=== PATIENT | female | born 1960 | race African-American/Black ===

== ENCOUNTER 2016-09-08 11:19 | Inpatient (IN) | payer OTHER ==
[2016-09-08 16:57] VITALS: BMI 27.3
--- NOTE | 2016-09-08 16:57 | HP ---
Admission [facility] Chief Complaint: I WANT TO GO TO REHAB Allergies/Adverse Reactions: Allergies Allergy/AdvReac Type Severity Reaction Status Date / Time onion Allergy Severe Swelling Verified 09/08/16 17:36 red sauce Allergy Severe Swelling Uncoded 09/08/16 17:36 History of Present Illness: 56 YEARS OLD FEMALE WITH LONG HISTORY OF ALCOHOL, COCAINE DEPENDENCE HAS DIABTES II, HYPERTENSION, HYPERLIPIDEMIA, GERD, ASTHMA, CONSTIPATION AND SCHIZOPHRENIA, METHADONE MAINTENANCE 80 MG DAILY IS ADMITTED TO REHAB Exam Limitations: No Limitations - Ebola screening Have you traveled outside of the country in the last 21 days: No Have you had contact with anyone from an Ebola affected area: No Have you been sick,other than usual withdrawal symptoms: No Do you have a fever: No - Review of Systems Constitutional: Weight Stable EENT: reports: Other (NEED EYE GLASSES FOR READING) Respiratory: reports: Cough, SOB with Exertion Cardiac: reports: No Symptoms Reported GI: reports: Constipated, Indigestion : reports: No Symptoms Reported Musculoskeletal: reports: Back Pain, Joint Pain (KNEES - ARTHRITIS) Integumentary: reports: No Symptoms Reported Neuro: reports: No Symptoms reported Endocrine: reports: No Symptoms Reported Hematology: reports: No Symptoms Reported Psychiatric: reports: Judgement Intact, Orientated x3, Anxious, Depressed Other Systems: Reviewed and Negative Patient History - Patient Medical History Hx Anemia: No Hx Asthma: Yes Hx Chronic Obstructive Pulmonary Disease (COPD): No Hx Cancer: No Hx Cardiac Disorders: No Hx Congestive Heart Failure: No Hx Hypertension: Yes Hx Hypercholesterolemia: Yes Hx Pacemaker: No HX Cerebrovascular Accident: No Hx Seizures: No Hx Dementia: No Hx Diabetes: Yes Hx Gastrointestinal Disorders: Yes Hx Liver Disease: No Hx Genitourinary Disorders: No Hx Sexually Transmitted Disorders: No Hx Renal Disease (ESRD): No Hx Thyroid Disease: No Hx Human Immunodeficiency Virus (HIV): No Hx Hepatitis C: No Hx Depression: No Hx Suicide Attempt: No Hx Bipolar Disorder: No Hx Schizophrenia: Yes - Patient Surgical History Past Surgical History: No - PPD History Previous Implant?: Yes Documented Results: Negative w/o proof Implanted On Prior [facility] Admission?: No PPD to be Administered?: Yes - Reproductive History Patient is a Female of Child Bearing Age (11 -55 yrs old): Yes Last Menstrual Period: 09/08/08 Patient : No - Smoking Cessation Smoking history: Former smoker Have you smoked in the past 12 months: No Hx Chewing Tobacco Use: No Initiated information on smoking cessation: No - Substance & Tx. History Hx Alcohol Use: Yes Hx Substance Use: Yes Substance Use Type: Alcohol, Cocaine, Opiates Hx Substance Use Treatment: Yes - Substances Abused COCAINE Route: Smoking Frequency: Daily Age of first use: 34 Date of Last Use: 09/06/16 Family Disease History - Family Disease History Family Disease History: Diabetes: Brother, Other: Mother (MVA ) Admission Physical Exam [facility] - Physical General Appearance: Yes: Nourished, Appropriately Dressed HEENTM: Yes: Hearing grossly Normal, Normal ENT Inspection, Normocephalic, Normal Voice Respiratory: Yes: Chest Non-Tender, No Respiratory Distress, No Accessory Muscle Use, Wheezing, Expiration Neck: Yes: Supple, Trachea in good position Breast: Yes: Breasts Symetrical Cardiology: Yes: Regular Rhythm, Regular Rate, S1, S2 Abdominal: Yes: Non Tender, Soft Genitourinary: Yes: Within Normal Limits Back: Yes: Normal Inspection Musculoskeletal: Yes: full range of Motion, Gait Steady, Back pain Extremities: Yes: Normal Inspection, Normal Range of Motion, Non-Tender Neurological: Yes: Fully Oriented, Alert, Motor Strength 5/5, Normal Response, Depressed Affect Integumentary: Yes: Warm Lymphatic: Yes: Within Normal Limits - Diagnostic (1) Methadone maintenance therapy patient Current Visit: Yes Status: Acute Comment: 80 MG VERIFICATION PENDING (2) Cocaine dependence, uncomplicated Current Visit: Yes Status: Chronic (3) Diabetes mellitus type II, non insulin dependent Current Visit: Yes Status: Acute Comment: METFORMIN 1000 MG BID (4) Hypertension Current Visit: Yes Status: Acute Qualifiers: Hypertension type: essential hypertension Qualified Code(s): I10 - Essential (primary) hypertension Comment: AMLODIPINE 10 MG (5) Hypercholesterolemia Current Visit: Yes Status: Acute Comment: LIPITOR 40 MG (6) Asthma Current Visit: Yes Status: Acute Qualifiers: Asthma severity: mild intermittent Asthma complication type: with status asthmaticus Qualified Code(s): J45.22 - Mild intermittent asthma with status asthmaticus (7) Constipation by delayed colonic transit Current Visit: Yes Status: Acute Comment: COLACE (8) GERD (gastroesophageal reflux disease) Current Visit: Yes Status: Acute Qualifiers: Esophagitis presence: without esophagitis Qualified Code(s): K21.9 - Gastro-esophageal reflux disease without esophagitis (9) Schizophrenia Current Visit: Yes Status: Suspected Qualifiers: Schizophrenia type: schizophreniform disorder Qualified Code(s): F20.81 - Schizophreniform disorder Cleared for Admission [facility] - Detox or Rehab [facility] Level of Care: Observation Bed Detox Regimen/Protocol: Not Applicable Claeared for Rehab Admission: Yes [facility] Breath Alcohol Content Breath Alcohol Content: 0 Vital Signs - Vital Signs Vital Signs Refused: No Temperature: 96.4 F Temperature Source: Oral Pulse Rate: 76 Respiratory Rate: 19 Blood Pressure: 111/73 BP Location: Left Arm Blood Pressure Position: Sitting - Height Height: 5 ft 8 in - Weight Weight: 180 lb Body Mass Index (BMI): 27.3 - Bowel Function Bowel Movement: Yes Urine Pregancy Test - Result Urine Test Results: Negative- NO Line Present Urine Drug Screen - Control Is Test Valid: Yes - Results Drug Screen Negative: No Urine Drug Screen Results: SHAI-Cocaine, OPI-Opiates, MTD-Methadone
[2016-09-08] MEDS ORDERED: P-EPHED 60MG/TRIPROLIDI 2.5MG TABLET PO PRN (17:09)
[2016-09-08] MEDS ORDERED: LOPERAMIDE HCL 2 MG CAPSULE PO PRN (17:09)
[2016-09-08] MEDS ORDERED: guaiFENesin/D-METHORPHAN HB 10 ML UNIT-DOSE CUPS PO PRN (17:09)
[2016-09-08] MEDS ORDERED: MAGNESIUM CITRATE 300 ML BOTTLE PO PRN (17:09)
[2016-09-08] MEDS ORDERED: ALBUTEROL SO4 2.5/IPRATROPIUM 0.5 INH SOL 3 ML VIAL.NEB. NEB PRN (17:11)
[2016-09-08] MEDS ORDERED: TUBERCULIN PPD 5 TU/0.1ML VIAL ID ONE (19:55)
[2016-09-08] MEDS: THIAMINE HCL 100 MG TABLET (FP) PO SCH (21:21)
[2016-09-08] MEDS: BUDESONIDE/FORMETEROL FUMARATE 80/4.5 mcg INHALER IH SCH (21:21)
[2016-09-08] MEDS: RANITIDINE HCL 150 MG TABLET (FP) PO SCH (21:22)
[2016-09-08] MEDS: ATORVASTATIN CA 40 MG TABLET (FP) PO SCH (21:22)
[2016-09-09 03:07] LABS: URINE APPEARANCE SLCLOUDY; URINE BILIRUBIN NEGATIVE (NEGATIVE); URINE BLOOD NEGATIVE (NEGATIVE); URINE COLOR LTYELLOW; URINE GLUCOSE (UA) NEGATIVE (NEGATIVE); URINE KETONE NEGATIVE (NEGATIVE); URINE NITRITE NEGATIVE (NEGATIVE); URINE PROTEIN NEGATIVE (NEGATIVE); URINE UROBILINOGEN NEGATIVE E.U./dl (0.2-1.0)
[2016-09-09 03:10] LABS: URINE LEUK ESTERASE 2+ (NEGATIVE)
[2016-09-09 03:19] LABS: URINE BACTERIA RARE /hpf (NONE SEEN); URINE MUCUS RARE; URINE RBC 2 /hpf (0-3); URINE WBC 5 /hpf (3-5)
[2016-09-09] MEDS: metFORMIN HCL 500 MG TABLET (FP) PO SCH ×2 (06:44→16:43)
[2016-09-09] MEDS ORDERED: METHADONE HCL 40 MG DISPERSABLE TABLET PO ONE (07:21)
[2016-09-09] MEDS ORDERED: PT OWN MED DRAWER 7, Y5N ONE ×2 (08:18→20:11)
[2016-09-09] MEDS: DOCUSATE SODIUM 100 MG CAPSULE (FP) PO PRN ×2 (08:59→16:43)
[2016-09-09] MEDS: BUDESONIDE/FORMETEROL FUMARATE 80/4.5 mcg INHALER IH SCH ×2 (09:00→21:11)
[2016-09-09] MEDS: amLODIPine BESYLATE 10 MG TABLET (FP) PO SCH (09:00)
[2016-09-09] MEDS: PRENATAL VITAMINS W/ FOLIC ACID TABLET (FP) PO SCH (09:00)
[2016-09-09 09:44] LABS: MCH 28.5 pg (25.7-33.7); MCHC 32.8 g/dl (32.0-36.0); MEAN CELL VOLUME 86.9 fl (80-96); MEAN PLT VOLUME 8.5 fl (7.5-11.1); PLATELET COUNT 256 K/MM3 (134-434); RDW 14.7 % (11.6-15.6); WHITE BLOOD COUNT 9.7 K/mm3 (4.0-10.0)
[2016-09-09 10:26] LABS: ALK PHOS 101 U/L (45-117); ANION GAP 7 (8-16); BILIRUBIN,TOTAL 0.2 mg/dL (0.2-1.0); CALCIUM 9.2 mg/dL (8.5-10.1); CO2 29 mmol/L (21-32); CREATININE 0.7 mg/dL (0.55-1.02); GLUCOSE,RANDOM 123 mg/dL (74-106); SGOT/AST 23 U/L (15-37); SGPT/ALT 40 U/L (12-78); TOT PROT 7.9 g/dl (6.4-8.2)
--- NOTE | 2016-09-09 13:10 | EKG ---
Test Reason : Blood Pressure : / mmHG Vent. Rate : 062 BPM Atrial Rate : 062 BPM P-R Int : 158 ms QRS Dur : 096 ms QT Int : 434 ms P-R-T Axes : 057 045 037 degrees QTc Int : 440 ms NORMAL SINUS RHYTHM NONSPECIFIC T WAVE ABNORMALITY ABNORMAL ECG NO PREVIOUS ECGS AVAILABLE Confirmed by EFFIE CAMPOS, ALEKSANDRA ([id number]) on 09/09/2016 1:10:05 PM Referred By: Confirmed By:ALEKSANDRA CHOU MD
[2016-09-09 15:10] LABS: HIV 1 & 2 AB NEGATIVE; HIV 1 AGp24 NEGATIVE
[2016-09-09] MEDS: MAG HYDROX/AL HYDROX/SIMETH 30 ML UNIT-DOSE CUP PO PRN (18:12)
[2016-09-09] MEDS: THIAMINE HCL 100 MG TABLET (FP) PO SCH (21:10)
[2016-09-09] MEDS: RANITIDINE HCL 150 MG TABLET (FP) PO SCH (21:10)
[2016-09-09] MEDS: ATORVASTATIN CA 40 MG TABLET (FP) PO SCH (21:10)
[2016-09-09] MEDS: diphenhydrAMINE HCL 50 MG CAPSULE PO PRN (21:11)
[2016-09-10] MEDS: metFORMIN HCL 500 MG TABLET (FP) PO SCH ×2 (06:31→17:16)
[2016-09-10] MEDS: METHADONE HCL 40 MG DISPERSABLE TABLET PO SCH (06:31)
[2016-09-10] MEDS: ACETAMINOPHEN 325 MG TABLET (FP) PO PRN (09:14)
[2016-09-10] MEDS: BUDESONIDE/FORMETEROL FUMARATE 80/4.5 mcg INHALER IH SCH ×2 (10:19→21:28)
[2016-09-10] MEDS: amLODIPine BESYLATE 10 MG TABLET (FP) PO SCH (10:19)
[2016-09-10] MEDS: PRENATAL VITAMINS W/ FOLIC ACID TABLET (FP) PO SCH (10:19)
[2016-09-10] MEDS: DOCUSATE SODIUM 100 MG CAPSULE (FP) PO PRN (10:20)
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
[2016-09-10] MEDS: SERTRALINE HCL 50 MG TABLET (FP) PO SCH (14:42)
[2016-09-10] MEDS: hydrOXYzine PAMOATE 50 MG CAPSULE (FP) PO PRN (16:05)
[2016-09-10] MEDS ORDERED: PT OWN MED DRAWER 7, Y5N ONE (16:41)
[2016-09-10] MEDS: RANITIDINE HCL 150 MG TABLET (FP) PO SCH (21:26)
[2016-09-10] MEDS: ATORVASTATIN CA 40 MG TABLET (FP) PO SCH (21:27)
[2016-09-10] MEDS: THIAMINE HCL 100 MG TABLET (FP) PO SCH (21:27)
[2016-09-10] MEDS: QUEtiapine FUMARATE 300 MG TABLET PO SCH (21:28)
[2016-09-10] MEDS: diphenhydrAMINE HCL 50 MG CAPSULE PO PRN (21:29)
[2016-09-11] MEDS: METHADONE HCL 40 MG DISPERSABLE TABLET PO SCH (06:51)
[2016-09-11] MEDS: metFORMIN HCL 500 MG TABLET (FP) PO SCH ×2 (06:52→17:08)
[2016-09-11] MEDS: SERTRALINE HCL 50 MG TABLET (FP) PO SCH (10:26)
[2016-09-11] MEDS: QUEtiapine FUMARATE 100 MG TABLET (FP) PO SCH (10:26)
[2016-09-11] MEDS: DOCUSATE SODIUM 100 MG CAPSULE (FP) PO SCH (10:26)
[2016-09-11] MEDS: amLODIPine BESYLATE 10 MG TABLET (FP) PO SCH (10:26)
[2016-09-11] MEDS: BUDESONIDE/FORMETEROL FUMARATE 80/4.5 mcg INHALER IH SCH ×2 (10:26→21:14)
[2016-09-11] MEDS: PRENATAL VITAMINS W/ FOLIC ACID TABLET (FP) PO SCH (10:26)
[2016-09-11] MEDS: MAG HYDROX/AL HYDROX/SIMETH 30 ML UNIT-DOSE CUP PO PRN (13:16)
[2016-09-11] MEDS: QUEtiapine FUMARATE 300 MG TABLET PO SCH (21:13)
[2016-09-11] MEDS: RANITIDINE HCL 150 MG TABLET (FP) PO SCH (21:13)
[2016-09-11] MEDS: THIAMINE HCL 100 MG TABLET (FP) PO SCH (21:13)
[2016-09-11] MEDS: ATORVASTATIN CA 40 MG TABLET (FP) PO SCH (21:13)
[2016-09-11] MEDS: diphenhydrAMINE HCL 50 MG CAPSULE PO PRN (21:15)
[2016-09-12] MEDS: METHADONE HCL 40 MG DISPERSABLE TABLET PO SCH (06:28)
[2016-09-12] MEDS: metFORMIN HCL 500 MG TABLET (FP) PO SCH ×2 (06:28→17:01)
[2016-09-12] MEDS: DOCUSATE SODIUM 100 MG CAPSULE (FP) PO SCH (10:00)
[2016-09-12] MEDS: SERTRALINE HCL 50 MG TABLET (FP) PO SCH (10:00)
[2016-09-12] MEDS: BUDESONIDE/FORMETEROL FUMARATE 80/4.5 mcg INHALER IH SCH ×2 (10:00→21:19)
[2016-09-12] MEDS: PRENATAL VITAMINS W/ FOLIC ACID TABLET (FP) PO SCH (10:00)
[2016-09-12] MEDS: amLODIPine BESYLATE 5 MG TABLET (FP) PO SCH ×2 (10:00→21:17)
[2016-09-12] MEDS: QUEtiapine FUMARATE 100 MG TABLET (FP) PO SCH (10:00)
[2016-09-12] MEDS: QUEtiapine FUMARATE 300 MG TABLET PO SCH (21:17)
[2016-09-12] MEDS: ATORVASTATIN CA 40 MG TABLET (FP) PO SCH (21:17)
[2016-09-12] MEDS: RANITIDINE HCL 150 MG TABLET (FP) PO SCH (21:18)
[2016-09-12] MEDS: THIAMINE HCL 100 MG TABLET (FP) PO SCH (21:18)
[2016-09-12] MEDS: diphenhydrAMINE HCL 50 MG CAPSULE PO PRN (21:19)
[2016-09-13] MEDS: ALBUTEROL SO4 6.7 GM HFA INHALER IH PRN (06:33)
[2016-09-13] MEDS: METHADONE HCL 40 MG DISPERSABLE TABLET PO SCH (06:34)
[2016-09-13] MEDS: metFORMIN HCL 500 MG TABLET (FP) PO SCH ×2 (06:35→16:45)
[2016-09-13] MEDS ORDERED: PT OWN MED DRAWER 7, Y5N ONE (08:05)
[2016-09-13] MEDS: MAGNESIUM HYDROX 2400MG/30ML ORAL SUSPENSION 30 ML CUP PO PRN (10:08)
[2016-09-13] MEDS: BUDESONIDE/FORMETEROL FUMARATE 80/4.5 mcg INHALER IH SCH ×2 (10:08→21:11)
[2016-09-13] MEDS: PRENATAL VITAMINS W/ FOLIC ACID TABLET (FP) PO SCH (10:08)
[2016-09-13] MEDS: SERTRALINE HCL 50 MG TABLET (FP) PO SCH (10:09)
[2016-09-13] MEDS: QUEtiapine FUMARATE 100 MG TABLET (FP) PO SCH (10:09)
[2016-09-13] MEDS: DOCUSATE SODIUM 100 MG CAPSULE (FP) PO SCH (10:09)
[2016-09-13] MEDS: amLODIPine BESYLATE 5 MG TABLET (FP) PO SCH ×2 (10:09→21:12)
[2016-09-13] MEDS: hydrOXYzine PAMOATE 50 MG CAPSULE (FP) PO PRN (10:11)
[2016-09-13] MEDS: QUEtiapine FUMARATE 300 MG TABLET PO SCH (21:12)
[2016-09-13] MEDS: ATORVASTATIN CA 40 MG TABLET (FP) PO SCH (21:12)
[2016-09-13] MEDS: RANITIDINE HCL 150 MG TABLET (FP) PO SCH (21:12)
[2016-09-13] MEDS: THIAMINE HCL 100 MG TABLET (FP) PO SCH (21:12)
[2016-09-14] MEDS: METHADONE HCL 40 MG DISPERSABLE TABLET PO SCH (06:17)
[2016-09-14] MEDS: metFORMIN HCL 500 MG TABLET (FP) PO SCH ×2 (06:18→17:32)
[2016-09-14] MEDS: BUDESONIDE/FORMETEROL FUMARATE 80/4.5 mcg INHALER IH SCH ×2 (09:55→22:27)
[2016-09-14] MEDS: amLODIPine BESYLATE 5 MG TABLET (FP) PO SCH ×2 (09:56→21:19)
[2016-09-14] MEDS: QUEtiapine FUMARATE 100 MG TABLET (FP) PO SCH (09:56)
[2016-09-14] MEDS: PRENATAL VITAMINS W/ FOLIC ACID TABLET (FP) PO SCH (09:56)
[2016-09-14] MEDS: DOCUSATE SODIUM 100 MG CAPSULE (FP) PO SCH (09:56)
[2016-09-14] MEDS: SERTRALINE HCL 50 MG TABLET (FP) PO SCH (09:56)
[2016-09-14] MEDS ORDERED: PT OWN MED DRAWER 7, Y5N ONE ×3 (09:57→21:25)
[2016-09-14] MEDS: hydrOXYzine PAMOATE 50 MG CAPSULE (FP) PO PRN (17:33)
[2016-09-14] MEDS: RANITIDINE HCL 150 MG TABLET (FP) PO SCH (21:19)
[2016-09-14] MEDS: ATORVASTATIN CA 40 MG TABLET (FP) PO SCH (21:19)
[2016-09-14] MEDS: QUEtiapine FUMARATE 300 MG TABLET PO SCH (21:19)
[2016-09-14] MEDS: THIAMINE HCL 100 MG TABLET (FP) PO SCH (21:19)
[2016-09-14] MEDS: ALBUTEROL SO4 6.7 GM HFA INHALER IH PRN (21:26)
[2016-09-15] MEDS: METHADONE HCL 40 MG DISPERSABLE TABLET PO SCH (06:18)
[2016-09-15] MEDS: metFORMIN HCL 500 MG TABLET (FP) PO SCH ×2 (06:19→16:57)
[2016-09-15] MEDS: PRENATAL VITAMINS W/ FOLIC ACID TABLET (FP) PO SCH (10:10)
[2016-09-15] MEDS: DOCUSATE SODIUM 100 MG CAPSULE (FP) PO SCH (10:10)
[2016-09-15] MEDS: BUDESONIDE/FORMETEROL FUMARATE 80/4.5 mcg INHALER IH SCH ×2 (10:11→21:21)
[2016-09-15] MEDS: QUEtiapine FUMARATE 100 MG TABLET (FP) PO SCH (10:11)
[2016-09-15] MEDS: SERTRALINE HCL 50 MG TABLET (FP) PO SCH (10:11)
[2016-09-15] MEDS: amLODIPine BESYLATE 5 MG TABLET (FP) PO SCH (10:11)
[2016-09-15] MEDS: ATORVASTATIN CA 40 MG TABLET (FP) PO SCH (21:20)
[2016-09-15] MEDS: THIAMINE HCL 100 MG TABLET (FP) PO SCH (21:20)
[2016-09-15] MEDS: RANITIDINE HCL 150 MG TABLET (FP) PO SCH (21:20)
[2016-09-15] MEDS: QUEtiapine FUMARATE 300 MG TABLET PO SCH (21:20)
[2016-09-15] MEDS: diphenhydrAMINE HCL 50 MG CAPSULE PO PRN (21:21)
[2016-09-16] MEDS: METHADONE HCL 40 MG DISPERSABLE TABLET PO SCH (06:30)
[2016-09-16] MEDS: metFORMIN HCL 500 MG TABLET (FP) PO SCH ×2 (06:32→17:01)
[2016-09-16] MEDS ORDERED: PT OWN MED DRAWER 7, Y5N ONE (08:45)
[2016-09-16] MEDS: DOCUSATE SODIUM 100 MG CAPSULE (FP) PO SCH (10:05)
[2016-09-16] MEDS: BUDESONIDE/FORMETEROL FUMARATE 80/4.5 mcg INHALER IH SCH ×2 (10:06→21:27)
[2016-09-16] MEDS: amLODIPine BESYLATE 5 MG TABLET (FP) PO SCH (10:06)
[2016-09-16] MEDS: QUEtiapine FUMARATE 100 MG TABLET (FP) PO SCH (10:06)
[2016-09-16] MEDS: SERTRALINE HCL 50 MG TABLET (FP) PO SCH (10:06)
[2016-09-16] MEDS: PRENATAL VITAMINS W/ FOLIC ACID TABLET (FP) PO SCH (10:06)
[2016-09-16] MEDS: THIAMINE HCL 100 MG TABLET (FP) PO SCH (21:27)
[2016-09-16] MEDS: RANITIDINE HCL 150 MG TABLET (FP) PO SCH (21:29)
[2016-09-16] MEDS: QUEtiapine FUMARATE 300 MG TABLET PO SCH (21:29)
[2016-09-16] MEDS: ATORVASTATIN CA 40 MG TABLET (FP) PO SCH (21:29)
[2016-09-16] MEDS: hydrOXYzine PAMOATE 50 MG CAPSULE (FP) PO PRN (21:30)
[2016-09-16] MEDS: ACETAMINOPHEN 325 MG TABLET (FP) PO PRN (21:31)
[2016-09-17] MEDS: metFORMIN HCL 500 MG TABLET (FP) PO SCH ×2 (06:27→17:12)
[2016-09-17] MEDS: METHADONE HCL 40 MG DISPERSABLE TABLET PO SCH (06:27)
[2016-09-17] MEDS: MENTHOL/PHENOL 1 EACH UD MM PRN (06:29)
[2016-09-17] MEDS: QUEtiapine FUMARATE 100 MG TABLET (FP) PO SCH (09:53)
[2016-09-17] MEDS: PRENATAL VITAMINS W/ FOLIC ACID TABLET (FP) PO SCH (09:53)
[2016-09-17] MEDS: DOCUSATE SODIUM 100 MG CAPSULE (FP) PO SCH (09:53)
[2016-09-17] MEDS: SERTRALINE HCL 50 MG TABLET (FP) PO SCH (09:53)
[2016-09-17] MEDS: BUDESONIDE/FORMETEROL FUMARATE 80/4.5 mcg INHALER IH SCH ×2 (09:54→21:15)
[2016-09-17] MEDS: amLODIPine BESYLATE 5 MG TABLET (FP) PO SCH (09:54)
[2016-09-17] MEDS: ALBUTEROL SO4 6.7 GM HFA INHALER IH PRN (09:55)
[2016-09-17] MEDS: LIDOCAINE 5% TOPICAL PATCH TP SCH (15:37)
[2016-09-17] MEDS: ATORVASTATIN CA 40 MG TABLET (FP) PO SCH (21:14)
[2016-09-17] MEDS: QUEtiapine FUMARATE 300 MG TABLET PO SCH (21:14)
[2016-09-17] MEDS: THIAMINE HCL 100 MG TABLET (FP) PO SCH (21:14)
[2016-09-17] MEDS: RANITIDINE HCL 150 MG TABLET (FP) PO SCH (21:14)
[2016-09-17] MEDS: METHYL SALICYLATE/MENTHOL OINT 30 GM TUBE TP SCH (21:15)
[2016-09-18] MEDS: METHADONE HCL 40 MG DISPERSABLE TABLET PO SCH (06:20)
[2016-09-18] MEDS: metFORMIN HCL 500 MG TABLET (FP) PO SCH ×2 (06:21→16:59)
[2016-09-18] MEDS: MENTHOL/PHENOL 1 EACH UD MM PRN (06:23)
[2016-09-18] MEDS: SERTRALINE HCL 50 MG TABLET (FP) PO SCH (10:04)
[2016-09-18] MEDS: PRENATAL VITAMINS W/ FOLIC ACID TABLET (FP) PO SCH (10:05)
[2016-09-18] MEDS: QUEtiapine FUMARATE 100 MG TABLET (FP) PO SCH (10:05)
[2016-09-18] MEDS: METHYL SALICYLATE/MENTHOL OINT 30 GM TUBE TP SCH ×2 (10:05→21:16)
[2016-09-18] MEDS: DOCUSATE SODIUM 100 MG CAPSULE (FP) PO SCH (10:05)
[2016-09-18] MEDS: LIDOCAINE 5% TOPICAL PATCH TP SCH (10:05)
[2016-09-18] MEDS: amLODIPine BESYLATE 5 MG TABLET (FP) PO SCH (10:05)
[2016-09-18] MEDS: BUDESONIDE/FORMETEROL FUMARATE 80/4.5 mcg INHALER IH SCH ×2 (10:07→21:16)
[2016-09-18] MEDS: MAG HYDROX/AL HYDROX/SIMETH 30 ML UNIT-DOSE CUP PO PRN (10:37)
[2016-09-18] MEDS ORDERED: PNEUMOCOCCAL 23 VACCINE 0.5 ML VIAL IM ONE (12:00)
[2016-09-18] MEDS: QUEtiapine FUMARATE 300 MG TABLET PO SCH (21:16)
[2016-09-18] MEDS: ATORVASTATIN CA 40 MG TABLET (FP) PO SCH (21:16)
[2016-09-18] MEDS: THIAMINE HCL 100 MG TABLET (FP) PO SCH (21:16)
[2016-09-18] MEDS: RANITIDINE HCL 150 MG TABLET (FP) PO SCH (21:16)
[2016-09-18] MEDS: diphenhydrAMINE HCL 50 MG CAPSULE PO PRN (21:17)
[2016-09-19] MEDS: metFORMIN HCL 500 MG TABLET (FP) PO SCH ×2 (06:22→17:16)
[2016-09-19] MEDS: METHADONE HCL 40 MG DISPERSABLE TABLET PO SCH (06:22)
[2016-09-19] MEDS ORDERED: PT OWN MED DRAWER 7, Y5N ONE ×2 (08:49→19:11)
[2016-09-19] MEDS: BUDESONIDE/FORMETEROL FUMARATE 80/4.5 mcg INHALER IH SCH ×2 (09:55→21:18)
[2016-09-19] MEDS: DOCUSATE SODIUM 100 MG CAPSULE (FP) PO SCH (09:56)
[2016-09-19] MEDS: SERTRALINE HCL 50 MG TABLET (FP) PO SCH (09:56)
[2016-09-19] MEDS: QUEtiapine FUMARATE 100 MG TABLET (FP) PO SCH (09:56)
[2016-09-19] MEDS: PRENATAL VITAMINS W/ FOLIC ACID TABLET (FP) PO SCH (09:56)
[2016-09-19] MEDS: LIDOCAINE 5% TOPICAL PATCH TP SCH (09:56)
[2016-09-19] MEDS: METHYL SALICYLATE/MENTHOL OINT 30 GM TUBE TP SCH ×2 (09:56→21:18)
[2016-09-19] MEDS: amLODIPine BESYLATE 5 MG TABLET (FP) PO SCH (09:56)
[2016-09-19] MEDS: ATORVASTATIN CA 40 MG TABLET (FP) PO SCH (21:19)
[2016-09-19] MEDS: RANITIDINE HCL 150 MG TABLET (FP) PO SCH (21:19)
[2016-09-19] MEDS: HYDROCORTISONE 2.5% TOPICAL CREAM 30 GM TUBE TP SCH (21:19)
[2016-09-19] MEDS: THIAMINE HCL 100 MG TABLET (FP) PO SCH (21:19)
[2016-09-19] MEDS: QUEtiapine FUMARATE 300 MG TABLET PO SCH (21:19)
[2016-09-20] MEDS: METHADONE HCL 40 MG DISPERSABLE TABLET PO SCH (06:47)
[2016-09-20] MEDS: metFORMIN HCL 500 MG TABLET (FP) PO SCH ×2 (06:47→16:57)
[2016-09-20] MEDS: DOCUSATE SODIUM 100 MG CAPSULE (FP) PO SCH (09:52)
[2016-09-20] MEDS: SERTRALINE HCL 50 MG TABLET (FP) PO SCH (09:53)
[2016-09-20] MEDS: PRENATAL VITAMINS W/ FOLIC ACID TABLET (FP) PO SCH (09:53)
[2016-09-20] MEDS: amLODIPine BESYLATE 5 MG TABLET (FP) PO SCH (09:53)
[2016-09-20] MEDS: BUDESONIDE/FORMETEROL FUMARATE 80/4.5 mcg INHALER IH SCH ×2 (09:53→21:15)
[2016-09-20] MEDS: QUEtiapine FUMARATE 100 MG TABLET (FP) PO SCH (09:53)
[2016-09-20] MEDS: LIDOCAINE 5% TOPICAL PATCH TP SCH (09:53)
[2016-09-20] MEDS: METHYL SALICYLATE/MENTHOL OINT 30 GM TUBE TP SCH ×2 (09:54→21:14)
[2016-09-20] MEDS: HYDROCORTISONE 2.5% TOPICAL CREAM 30 GM TUBE TP SCH ×2 (09:54→21:15)
[2016-09-20] MEDS: THIAMINE HCL 100 MG TABLET (FP) PO SCH (21:13)
[2016-09-20] MEDS: RANITIDINE HCL 150 MG TABLET (FP) PO SCH (21:13)
[2016-09-20] MEDS: QUEtiapine FUMARATE 300 MG TABLET PO SCH (21:13)
[2016-09-20] MEDS: ATORVASTATIN CA 40 MG TABLET (FP) PO SCH (21:13)
[2016-09-20] MEDS: diphenhydrAMINE HCL 50 MG CAPSULE PO PRN (21:14)
[2016-09-21] MEDS: METHADONE HCL 40 MG DISPERSABLE TABLET PO SCH (06:25)
[2016-09-21] MEDS: metFORMIN HCL 500 MG TABLET (FP) PO SCH ×2 (06:26→17:13)
[2016-09-21] MEDS ORDERED: PT OWN MED DRAWER 7, Y5N ONE ×2 (09:03→21:17)
[2016-09-21] MEDS: DOCUSATE SODIUM 100 MG CAPSULE (FP) PO SCH (09:52)
[2016-09-21] MEDS: BUDESONIDE/FORMETEROL FUMARATE 80/4.5 mcg INHALER IH SCH ×2 (09:52→21:15)
[2016-09-21] MEDS: SERTRALINE HCL 50 MG TABLET (FP) PO SCH (09:52)
[2016-09-21] MEDS: PRENATAL VITAMINS W/ FOLIC ACID TABLET (FP) PO SCH (09:52)
[2016-09-21] MEDS: amLODIPine BESYLATE 5 MG TABLET (FP) PO SCH (09:52)
[2016-09-21] MEDS: QUEtiapine FUMARATE 100 MG TABLET (FP) PO SCH (09:52)
[2016-09-21] MEDS: METHYL SALICYLATE/MENTHOL OINT 30 GM TUBE TP SCH ×2 (09:53→21:16)
[2016-09-21] MEDS: HYDROCORTISONE 2.5% TOPICAL CREAM 30 GM TUBE TP SCH ×2 (09:53→21:14)
[2016-09-21] MEDS: LIDOCAINE 5% TOPICAL PATCH TP SCH (09:53)
[2016-09-21] MEDS: THIAMINE HCL 100 MG TABLET (FP) PO SCH (21:14)
[2016-09-21] MEDS: QUEtiapine FUMARATE 300 MG TABLET PO SCH (21:14)
[2016-09-21] MEDS: RANITIDINE HCL 150 MG TABLET (FP) PO SCH (21:14)
[2016-09-21] MEDS: ATORVASTATIN CA 40 MG TABLET (FP) PO SCH (21:14)
[2016-09-21] MEDS: diphenhydrAMINE HCL 50 MG CAPSULE PO PRN (21:15)
[2016-09-21] MEDS: MAGNESIUM HYDROX 2400MG/30ML ORAL SUSPENSION 30 ML CUP PO PRN (21:17)
[2016-09-22] MEDS ORDERED: METHADONE HCL 40 MG DISPERSABLE TABLET PO SCH (06:00)
[2016-09-22] MEDS: metFORMIN HCL 500 MG TABLET (FP) PO SCH (06:20)
[2016-09-22 06:45] VITALS: TEMP 98.1
[2016-09-22 09:39] VITALS: BP 112/65; PULSE 80
[2016-09-22] MEDS: PRENATAL VITAMINS W/ FOLIC ACID TABLET (FP) PO SCH (09:49)
[2016-09-22] MEDS: amLODIPine BESYLATE 5 MG TABLET (FP) PO SCH (09:50)
[2016-09-22] MEDS: QUEtiapine FUMARATE 100 MG TABLET (FP) PO SCH (09:50)
[2016-09-22] MEDS: BUDESONIDE/FORMETEROL FUMARATE 80/4.5 mcg INHALER IH SCH (09:50)
[2016-09-22] MEDS: SERTRALINE HCL 50 MG TABLET (FP) PO SCH (09:50)
[2016-09-22] MEDS: DOCUSATE SODIUM 100 MG CAPSULE (FP) PO SCH (09:50)
[2016-09-22] MEDS: LIDOCAINE 5% TOPICAL PATCH TP SCH (09:50)
[2016-09-22] MEDS ORDERED: PT OWN MED DRAWER 7, Y5N ONE (09:51)
[2016-09-22] MEDS: ALBUTEROL SO4 6.7 GM HFA INHALER IH PRN (09:54)
[2016-09-22] MEDS: HYDROCORTISONE 2.5% TOPICAL CREAM 30 GM TUBE TP SCH (09:54)
[2016-09-22] MEDS: METHYL SALICYLATE/MENTHOL OINT 30 GM TUBE TP SCH (09:54)
--- NOTE | 2016-09-22 13:57 | PN ---
Psychiatric Progress Note Vital Signs: Vital Signs Period Temp Pulse Resp BP Sys/[place]rosco Pulse Ox Last 24 Hr 98.1 F 69-80 16-16 99-112/58-65 Date of Session: 09/22/16 Chief Complaint:: Discharge visit HPI: Opioid and Cocaine dependence comorbid with Bipolar disorder, ROS: Multiple medical problems. Current Medications: Active Medications Generic Name Dose Route Start Last Admin Trade Name Freq PRN Reason Stop Dose Admin Acetaminophen 650 mg 09/08/16 17:09 09/16/16 21:31 Tylenol - PO 650 mg Q4H PRN Administration PAIN Al Hydroxide/Mg Hydroxide 30 ml 09/08/16 17:09 09/18/16 10:37 Mylanta Oral Suspension - PO 30 ml Q6H PRN Administration DYSPEPSIA Albuterol Sulfate 2 puff 09/08/16 17:11 09/22/16 09:54 Ventolin Hfa Inhaler - IH 2 puff Q4H PRN Administration SHORT OF BREATH/WHEEZING Amlodipine Besylate 5 mg 09/16/16 10:00 09/22/16 09:50 Norvasc - PO 5 mg DAILY GARO Administration Atorvastatin Calcium 40 mg 09/08/16 22:00 09/21/16 21:14 Lipitor - PO 40 mg HS GARO Administration Budesonide/Formoterol Fumarate 2 puff 09/08/16 22:00 09/22/16 09:50 Symbicort 80/4.5mcg - IH 2 inhaler BID GARO Administration Diphenhydramine HCl 50 mg 09/08/16 17:09 09/21/16 21:15 Benadryl - PO 50 mg HSMR1 PRN Administration INSOMNIA Docusate Sodium 100 mg 09/11/16 10:00 09/22/16 09:50 Colace - PO 100 mg DAILY GARO Administration Eucalyptus/Menthol/Phenol/Sorbitol 1 each 09/08/16 17:09 09/18/16 06:23 Cepastat Lozenge - MM 1 each Q4H PRN Administration SORE THROAT Guaifenesin 10 ml 09/08/16 17:09 Robitussin Dm - PO Q6H PRN COUGH Hydrocortisone 1 applic 09/19/16 22:00 09/22/16 09:54 Anusol 2.5% Hc Cream - TP Not Given BID GARO Hydroxyzine Pamoate 50 mg 09/10/16 14:17 09/16/16 21:30 Vistaril - PO 50 mg Q4H PRN Administration ANXIETY Lidocaine 1 patch 09/17/16 14:45 09/22/16 09:50 Lidoderm Patch - TP 1 patch DAILY GARO Administration Loperamide HCl 4 mg 09/08/16 17:09 Imodium - PO Q6H PRN DIARRHEA Magnesium Citrate 300 ml 09/08/16 17:09 09/14/16 10:17 Citroma - PO 300 ml Q48H PRN Administration CONSTIPATION Magnesium Hydroxide 30 ml 09/08/16 17:09 09/21/16 21:17 Milk Of Magnesia - PO 30 ml DAILY PRN Administration CONSTIPATION Metformin HCl 1,000 mg 09/09/16 07:00 09/22/16 06:20 Glucophage - PO 1,000 mg BID@0700,1630 GARO Administration Methadone HCl 80 mg 09/22/16 06:00 09/22/16 06:19 Dolophine - PO 80 mg DAILY@0600 GARO Administration Methyl Salicylate 1 applic 09/17/16 22:00 09/22/16 09:54 Jorge Alberto-Dacosta - TP Not Given BID [facility] Multivit/Folic Acid/Iron 1 tab 09/09/16 10:00 09/22/16 09:49 Vitamins ([facility]) - PO 1 tab DAILY GARO Administration Pseudoephedrine/Triprolidine 1 combo 09/08/16 17:09 09/17/16 06:29 Actifed - PO 1 combo TID PRN Administration NASAL CONGESTION Quetiapine Fumarate 300 mg 09/10/16 22:00 09/21/16 21:14 Seroquel - PO 300 mg HS GARO Administration Quetiapine Fumarate 100 mg 09/11/16 10:00 09/22/16 09:50 Seroquel - PO 100 mg DAILY GARO Administration Ranitidine HCl 300 mg 09/08/16 22:00 09/21/16 21:14 Zantac - PO 300 mg HS GARO Administration Sertraline HCl 100 mg 09/10/16 14:15 09/22/16 09:50 Zoloft - PO 100 mg DAILY GARO Administration Thiamine HCl 100 mg 09/08/16 22:00 09/21/16 21:14 Vitamin B1 - PO 100 mg HS GAOR Administration Current Side Effect: No Lab tests ordered: No Lab tests reviewed: Yes Provider note:: PAtient completed this program today (Managed Care discharge) .She has met her treatment goals and will continue to address her issues on outpatient basis at [facility] in [facility] and [facility].Patient will continue current medications as per plan.Scripts for 30 days supply of Zoloft 100 mg po daily and Seroquel 100 mg po am and 300 mg po hs. provided. Therapy provided focusing on relapse prevention,coping skills,support system utilization has been discussed as well to maintain recovery. Patient is stable for discharge today. Total face to face time:: 30 Mental Status Exam - Mental Status Exam Alert and Oriented to: Time, Place, Person Cognitive Function: Grossly Intact Patient Appearance: Well Groomed Mood: Anxious Affect: Mood Congruent Patient Behavior: Cooperative Speech Pattern: Clear Voice Loudness: Normal Thought Process: Goal Oriented Thought Disorder: Not Present Hallucinations: Denies Suicidal Ideation: Denies Homicidal Ideation: Denies Insight/Judgement: Fair Sleep: Fair Appetite: Good Muscle strength/Tone: Normal Gait/Station: Normal Psychiatric Treatment Plan - Problem List (1) Asthma Current Visit: Yes Qualifiers: Asthma severity: mild intermittent Asthma complication type: with status asthmaticus Qualified Code(s): J45.22 - Mild intermittent asthma with status asthmaticus (2) Diabetes mellitus type II, non insulin dependent Current Visit: Yes Comment: METFORMIN 1000 MG BID (3) GERD (gastroesophageal reflux disease) Current Visit: Yes Qualifiers: Esophagitis presence: without esophagitis Qualified Code(s): K21.9 - Gastro-esophageal reflux disease without esophagitis (4) Hypercholesterolemia Current Visit: Yes Comment: LIPITOR 40 MG (5) Hypertension Current Visit: Yes Qualifiers: Hypertension type: essential hypertension Qualified Code(s): I10 - Essential (primary) hypertension Comment: AMLODIPINE 10 MG (6) Methadone maintenance therapy patient Current Visit: Yes Comment: 80 MG VERIFICATION PENDING (7) Cocaine dependence, uncomplicated Current Visit: Yes (8) Bipolar II disorder Current Visit: Yes (9) PTSD (post-traumatic stress disorder) Current Visit: Yes
== END 2016-09-22 15:00 | disposition home or self-care (01) | DRG 772 ==
LOC: YASAS 11:19 → Y3E 18:08
PROVIDERS: ADMIT Psychiatry & Neurology Psychiatry; ATTEND Psychiatry & Neurology Psychiatry
PROC: HZ42ZZZ Group Counseling for Substance Abuse Treatment, Cognitive-Behavioral (ICD-10-PCS; principal; 2016-09-22)
DX: F11.20 Opioid dependence, uncomplicated (principal); F10.230 Alcohol dependence with withdrawal, uncomplicated; F19.20 Other psychoactive substance dependence, uncomplicated; F31.81 Bipolar II disorder; F43.10 Post-traumatic stress disorder, unspecified; F20.81 Schizophreniform disorder; I10 Essential (primary) hypertension; J45.22 Mild intermittent asthma with status asthmaticus; E78.00 Pure hypercholesterolemia, unspecified; E11.9 Type 2 diabetes mellitus without complications; Z79.84 Long term (current) use of oral hypoglycemic drugs; K21.9 Gastro-esophageal reflux disease without esophagitis; K59.01 Slow transit constipation
CPT/HCPCS: 36415; 80053; 81003; 81015; 85027; 86593; 87389; 90732; 93005; 93010; G0009